=== PATIENT | female | born 1950 | race Caucasian/White ===

== ENCOUNTER → 2018-05-17 11:22 | Outpatient (CLI) | payer MEDICARE, OTHER, SELFPAY ==
[2018-05-20 17:17] LABS: Potassium 3.8 mmol/L (3.4-5.1); Sodium 138 mmol/L (137-145)
[2018-05-20 17:18] LABS: BUN Creatinine Ratio 18.3 (6-22); Blood Urea Nitrogen 11 mg/dL (7-17); Calcium 9.3 mg/dL (8.4-10.2); Carbon Dioxide 27 mmol/L (22-32); Chloride 100 mmol/L (98-107); Cholesterol 222 mg/dL (140-199); Estimated Glomerular Filt Rate > 60.0 mL/min (>60); Glucose 100 mg/dL (80-110); HDL Cholesterol 69 mg/dL (40-60); HEMOLYSIS < 15 (0-50); LDL Cholesterol Calculated 130 mg/dL (<100); Triglycerides 114 mg/dL (35-150)
[2018-05-20 17:19] LABS: Add Manual Diff / Slide Review NO; Basophils Percent Auto 0.8 % (0-2); Eosinophils Percent Auto 2.4 % (2-4); Hematocrit 40.1 % (36-46); Hemoglobin 13.3 g/dL (12.0-16.0); Lymphocytes Percent Auto 23.5 % (25-40); Mean Corpuscular HGB Conc 33.1 % (30-36); Mean Corpuscular Hemoglobin 27.2 PG (26-34); Mean Corpuscular Volume 82.3 fL (80-100); Monocytes Percent Auto 8.8 % (3-14); Neutrophils Percent Auto 64.5 % (50-75); Platelet Count 402 X10^3/uL (150-400); Red Blood Cell Count 4.87 X10^6/uL (4.0-5.2); Red Cell Distribution Width 14.5 % (11.6-14.8); White Blood Cell Count 6.5 X10^3/uL (4.5-11.0)
[2018-05-20 17:20] LABS: Basophils Absolute Auto 0 /uL (0-100); Eosinophils Absolute Auto 200 /uL (0-450); Lymphocytes Absolute Auto 1500 /uL (1100-4500); Monocytes Absolute Auto 600 /uL (0-900); Neutrophils Absolute Auto 4200 /uL (1500-7000)
== END ==
PROVIDERS: Family Provider Internal Medicine; PCP Internal Medicine; Visit Provider Internal Medicine
DX: I10 Essential (primary) hypertension (principal); D50.0 Iron deficiency anemia secondary to blood loss (chronic)
CPT/HCPCS: 36415; 80048; 80061; 85025

== ENCOUNTER → 2018-06-29 10:24 | Outpatient (CLI) | payer MEDICARE, OTHER, SELFPAY ==
--- NOTE | 2018-06-29 | DI.MG.S_ITS ---
BILATERAL DIGITAL SCREENING MAMMOGRAM 3D/2D WITH CAD: 06/29/2018 CLINICAL: Routine screening. Comparison is made to exams dated: 06/23/2017 mammogram, 05/20/2016 mammogram, and 12/21/2014 mammogram - [facility]. There are scattered fibroglandular elements in both breasts. Current study was also evaluated with a Computer Aided Detection (CAD) system. No significant masses, calcifications, or other findings are seen in either breast. There has been no significant interval change. IMPRESSION: NEGATIVE There is no mammographic evidence of malignancy. A 1 year screening mammogram is recommended. This exam was interpreted at Station ID: [id number]. NOTE: For mammograms, a report in lay terms will be sent to the patient. Approximately 15% of breast malignancies will not be visualized mammographically. In the management of a palpable breast mass, a negative mammogram must not discourage biopsy of a clinically suspicious lesion. Electronically Signed By: Tim Nova M.D. at/yulissa:06/29/2018 12:36:15 letter sent: Normal Exam ACR BI-RADS Category 1: Negative 3341F
== END ==
PROVIDERS: PCP Internal Medicine; Visit Provider Internal Medicine
DX: Z12.31 Encounter for screening mammogram for malignant neoplasm of breast (principal)
CPT/HCPCS: 77063; 77067

== ENCOUNTER → 2019-05-19 11:57 | Outpatient (CLI) | payer MEDICARE, OTHER, SELFPAY ==
[2019-05-19 12:58] LABS: Add Manual Diff / Slide Review NO; Basophils Absolute Auto 0 /uL (0-100); Basophils Percent Auto 0.8 % (0-2); Eosinophils Absolute Auto 100 /uL (0-450); Eosinophils Percent Auto 1.4 % (2-4); Hematocrit 34.4 % (36-46); Hemoglobin 10.8 g/dL (12.0-16.0); Lymphocytes Absolute Auto 1400 /uL (1100-4500); Lymphocytes Percent Auto 21.6 % (25-40); Mean Corpuscular HGB Conc 31.4 % (30-36); Mean Corpuscular Hemoglobin 22.1 PG (26-34); Mean Corpuscular Volume 70.4 fL (80-100); Monocytes Absolute Auto 600 /uL (0-900); Monocytes Percent Auto 8.8 % (3-14); Neutrophils Absolute Auto 4200 /uL (1500-7000); Neutrophils Percent Auto 67.4 % (50-75); Platelet Count 456 X10^3/uL (150-400); Red Blood Cell Count 4.89 X10^6/uL (4.0-5.2); White Blood Cell Count 6.3 X10^3/uL (4.5-11.0)
== END ==
PROVIDERS: PCP Internal Medicine; Referring Provider Internal Medicine; Visit Provider Internal Medicine
DX: D50.0 Iron deficiency anemia secondary to blood loss (chronic) (principal)
CPT/HCPCS: 36415; 85025

== ENCOUNTER → 2019-08-22 16:01 | Outpatient (CLI) | payer MEDICARE, OTHER, SELFPAY ==
[2019-08-23 08:51] LABS: COVID19 Sendout Not Detected (Not Detect)
== END ==
PROVIDERS: PCP Internal Medicine; Visit Provider Physician Assistant
DX: Z01.812 Encounter for preprocedural laboratory examination (principal)
CPT/HCPCS: 87635

== ENCOUNTER 2019-08-25 08:31 | Day surgery (SDC) | payer MEDICARE, OTHER, SELFPAY ==
--- NOTE | 2019-08-25 | PATH_ITS ---
[facility] Accession Number: [id number] . 01 Material submitted: . colon - COLON POLYP AT 35 CM . 02 Diagnosis: Colon, Polyp at 35 cm, Biopsy: Colonic mucosa with a benign lymphoid aggregate and no other diagnostic abnormality. Additional levels were examined. MRV 08/29/2019 1331 Local . 02 Electronically signed: . Yissel Noonan MD, Pathologist NPI- [id number] . 01 Gross description: . COLON POLYP AT 35 CM: Received in formalin are 2 fragment(s) of mares, soft tissue measuring 0.1 x 0.1 x 0.1 cm to 0.3 x 0.2 x 0.2 cm submitted entirely in 1 cassette(s) /ANAHY 08/25/20192041 Local . 02 Pathologist provided ICD-10: K63.5 . 02 CPT . 904518 Performed at: 01 [facility] [address], [place], [place] [id number] MD Trevor Márquez MD Phone: [phone] Performed at: [address] [facility] [address] [place], [place] [id number] MD Yissel Noonan MD Phone: [phone]
[2019-08-25 08:50] VITALS: BP 139/76; PULSE 65; RESP 16; TEMP 36.7; O2SAT 99; BMI 23.0
[2019-08-25] MEDS: LACTATED RINGERS 1,000 ML 200 ML IV (08:58)
[2019-08-25] MEDS: ONDANSETRON 4 MG/2 ML INJ IV (09:00)
--- NOTE | 2019-08-25 09:48 | PM.PREOP ---
Pre-operative Note COVID-19 COVID-19 status: Negative Result date/Date tested (Pos, Neg/Pending): 08/22/19 Interval Note History & Physical reviewed/Exam performed by Physician: Yes Changes to H&P: No ASA Class (for procedural sedation): II
[2019-08-25] MEDS: LIDOCAINE 4% SOLN 50 ML 20 ML TOP (09:56)
[2019-08-25] MEDS: MIDAZOLAM 5 MG/5 ML VIAL IV ×2 (10:13→10:27)
[2019-08-25] MEDS: fentaNYL 250 MCG/5 ML INJ IV (10:13)
[2019-08-25 10:37] VITALS: BP 114/64; PULSE 56; RESP 18; TEMP 36.2; O2SAT 96
[2019-08-25 10:42] VITALS: BP 105/69; PULSE 82; RESP 14; O2SAT 95
--- NOTE | 2019-08-25 10:44 | PM.OP.ENDO ---
Operative Date/Time/Diagnoses Date of procedure: 08/25/19 Time of procedure: 10:45 Pre-op diagnosis: Anemia Post-op diagnosis: same (Diverticulosis. Tiny polyp not the source of anemia. Large internal hemorrhoids with irritation. Could be the source of anemia.) Procedure & Clinicians Study performed: EGD. Colonoscopy with cold biopsy. Same procedure as scheduled: Yes Indications: Determine if there is a GI source of anemia Surgeon: Dwain Fairbanks Procedure Notes SCOAP/Timeout: Performed Procedure in detail: The patient had topical anesthetic applied to oropharynx. She was placed in left lateral decubitus position and underwent IV sedation directed by the surgeon consisting of fentanyl and Versed. A bite block was inserted and the scope was advanced through it into the esophagus. The esophagus was unremarkable. GE junction was noted at 40 cm from the incisors. The stomach insufflated well. There were no lesions seen in the body, antrum or at the incisura. The pyloric channel was patent. The duodenum was unremarkable to the 4th part. The scope was brought back into the stomach and retroflexed. The proximal stomach normal in appearance. There was no evidence of a hiatal hernia.. The scope was straightened and brought out through the esophagus again. No lesions were seen. The scope was removed and the patient tolerated the procedure well. The patient was repositioned in given additional sedation. Digital exam was remarkable for protruding internal hemorrhoids with ulceration on 1 of them. The scope was inserted and advanced through the rectum into the sigmoid, descending, transverse, and ascending colon. Patient was noted to have sigmoid diverticulosis. The cecum was reached identified by the ileocecal valve and the appendiceal opening. . The scope was gradually brought out. One Polyps was found at 20 cm from the anal verge. This was a very small lesion and not the source of significant blood loss. It was biopsied and removed.. The scope ultimately was retroflexed in the rectum. The appearance was remarkable for very large internal hemorrhoids. There was also scarring noted from her prior hemorrhoid procedure. The scope was removed and the patient tolerated the procedure well Scope withdrawal time: 8 minutes(10 total) Sedation minutes: 36 Findings: diverticulosis (Sigmoid), internal hemorrhoids and polyp Specimen(s): other (Polyp) Complications: none Post-procedure Recommendations: Colonscopy in 10 years (Consider if in good health) Follow up: as needed Disposition: PACU
[2019-08-25 10:47] VITALS: BP 122/69; PULSE 77; RESP 16; O2SAT 96
[2019-08-25 10:52] VITALS: BP 129/68; PULSE 76; RESP 18; TEMP 36; O2SAT 96
== END 2019-08-25 11:29 | disposition home or self-care (01) ==
PROVIDERS: PCP Internal Medicine; Referring Provider Specialist; Visit Provider Specialist
PROC: 0DJ08ZZ Inspection of Upper Intestinal Tract, Via Natural or Artificial Opening Endoscopic (ICD-10-PCS; CPT 43235; principal; 2019-08-25 09:45)
PROC: 0DJD8ZZ Inspection of Lower Intestinal Tract, Via Natural or Artificial Opening Endoscopic (ICD-10-PCS; CPT 45378; 2019-08-25 09:45)
DX: D64.9 Anemia, unspecified (principal); K57.30 Diverticulosis of large intestine without perforation or abscess without bleeding; K64.8 Other hemorrhoids; K63.5 Polyp of colon
CPT/HCPCS: 45380; 43235; 99152; 99153; J2250; J2405; J3010

== ENCOUNTER → 2019-10-10 10:09 | Outpatient (CLI) | payer MEDICARE, OTHER, SELFPAY ==
[2019-10-10 11:03] LABS: Add Manual Diff / Slide Review NO; Basophils Absolute Auto 0 /uL (0-100); Basophils Percent Auto 0.5 % (0-2); Eosinophils Absolute Auto 100 /uL (0-450); Eosinophils Percent Auto 1.4 % (2-4); Hematocrit 44.2 % (36-46); Hemoglobin 14.8 g/dL (12.0-16.0); Lymphocytes Absolute Auto 1200 /uL (1100-4500); Lymphocytes Percent Auto 23.7 % (25-40); Mean Corpuscular HGB Conc 33.5 % (30-36); Mean Corpuscular Hemoglobin 29.3 PG (26-34); Mean Corpuscular Volume 87.5 fL (80-100); Monocytes Absolute Auto 500 /uL (0-900); Neutrophils Absolute Auto 3400 /uL (1500-7000); Neutrophils Percent Auto 65.4 % (50-75); Platelet Count 299 X10^3/uL (150-400); Red Blood Cell Count 5.05 X10^6/uL (4.0-5.2); White Blood Cell Count 5.3 X10^3/uL (4.5-11.0)
[2019-10-10 11:48] LABS: HEMOLYSIS < 15 (0-50); Iron 201 ug/dL (37-170)
[2019-10-10 11:51] LABS: BUN Creatinine Ratio 22.4 (6-22); Blood Urea Nitrogen 13 mg/dL (7-17); Calcium 9.8 mg/dL (8.4-10.2); Carbon Dioxide 26 mmol/L (22-32); Chloride 105 mmol/L (98-107); Estimated Glomerular Filt Rate > 60.0 mL/min (>60); Glucose 110 mg/dL (80-110); HEMOLYSIS < 15 (0-50); Potassium 4.4 mmol/L (3.4-5.1); Sodium 138 mmol/L (137-145)
[2019-10-10 11:58] LABS: Percent Iron Saturation 51 % (15-50); Total Iron Binding Capacity 393 ug/dL (265-497); Transferrin 328 mg/dL (206-381)
[2019-10-13 07:09] LABS: Carnitine, Free 41 umol/L (20-55); Esterified/Free Ratio 0.7 Ratio (0.0-0.9)
== END ==
PROVIDERS: PCP Internal Medicine; Referring Provider Internal Medicine; Visit Provider Internal Medicine
DX: I10 Essential (primary) hypertension (principal); D50.0 Iron deficiency anemia secondary to blood loss (chronic); E71.40 Disorder of carnitine metabolism, unspecified; E55.9 Vitamin D deficiency, unspecified
CPT/HCPCS: 36415; 80048; 82306; 82379; 83540; 83550; 85025

== ENCOUNTER → 2020-02-16 09:28 | Outpatient (CLI) | payer MEDICARE, OTHER, SELFPAY ==
[2020-02-16 10:14] LABS: Add Manual Diff / Slide Review NO; Basophils Absolute Auto 0 /uL (0-100); Basophils Percent Auto 0.6 % (0-2); Eosinophils Absolute Auto 100 /uL (0-450); Eosinophils Percent Auto 2.3 % (2-4); Hematocrit 44.1 % (36-46); Hemoglobin 15.2 g/dL (12.0-16.0); Lymphocytes Absolute Auto 1600 /uL (1100-4500); Lymphocytes Percent Auto 25.5 % (25-40); Mean Corpuscular HGB Conc 34.4 % (30-36); Mean Corpuscular Hemoglobin 30.1 PG (26-34); Mean Corpuscular Volume 87.7 fL (80-100); Monocytes Absolute Auto 600 /uL (0-900); Monocytes Percent Auto 9.1 % (3-14); Neutrophils Absolute Auto 4000 /uL (1500-7000); Neutrophils Percent Auto 62.5 % (50-75); Platelet Count 336 X10^3/uL (150-400); Red Blood Cell Count 5.03 X10^6/uL (4.0-5.2); Red Cell Distribution Width 13.4 % (11.6-14.8); White Blood Cell Count 6.4 X10^3/uL (4.5-11.0)
[2020-02-16 10:37] LABS: HEMOLYSIS < 15 (0-50); Iron 80 ug/dL (37-170)
[2020-02-16 10:49] LABS: Percent Iron Saturation 19 % (15-50); Total Iron Binding Capacity 425 ug/dL (265-497); Transferrin 353 mg/dL (206-381)
== END ==
PROVIDERS: PCP Internal Medicine; Referring Provider Internal Medicine; Visit Provider Internal Medicine
DX: D50.0 Iron deficiency anemia secondary to blood loss (chronic) (principal)
CPT/HCPCS: 36415; 83540; 83550; 85025

== ENCOUNTER → 2020-04-03 19:13 | Outpatient (ROUT) | payer MEDICARE, OTHER, SELFPAY | PROVIDERS: PCP Internal Medicine; Visit Provider Internal Medicine | DX: R30.0 Dysuria (principal) | CPT/HCPCS: 87077; 87086 ==

== ENCOUNTER → 2020-08-16 08:59 | Outpatient (CLI) | payer MEDICARE, OTHER, SELFPAY ==
[2020-08-16 10:16] LABS: Add Manual Diff / Slide Review NO; Basophils Absolute Auto 0 /uL (0-100); Basophils Percent Auto 0.4 % (0-2); Eosinophils Absolute Auto 100 /uL (0-450); Eosinophils Percent Auto 1.4 % (2-4); Hematocrit 42.9 % (36-46); Hemoglobin 14.6 g/dL (12.0-16.0); Lymphocytes Absolute Auto 1300 /uL (1100-4500); Lymphocytes Percent Auto 22.6 % (25-40); Mean Corpuscular Hemoglobin 29.3 PG (26-34); Mean Corpuscular Volume 86.3 fL (80-100); Monocytes Absolute Auto 500 /uL (0-900); Monocytes Percent Auto 8.9 % (3-14); Neutrophils Absolute Auto 3700 /uL (1500-7000); Neutrophils Percent Auto 66.7 % (50-75); Platelet Count 297 X10^3/uL (150-400); Red Blood Cell Count 4.97 X10^6/uL (4.0-5.2); Red Cell Distribution Width 14.1 % (11.6-14.8); White Blood Cell Count 5.6 X10^3/uL (4.5-11.0)
[2020-08-16 11:01] LABS: BUN Creatinine Ratio 22.6 (6-22); Blood Urea Nitrogen 12 mg/dL (7-17); Calcium 9.7 mg/dL (8.4-10.2); Carbon Dioxide 27 mmol/L (22-32); Chloride 103 mmol/L (98-107); Estimated Glomerular Filt Rate > 60.0 mL/min (>60); Glucose 126 mg/dL (80-110); HEMOLYSIS < 15 (0-50); Potassium 4.2 mmol/L (3.4-5.1); Sodium 139 mmol/L (137-145)
== END ==
PROVIDERS: PCP Internal Medicine; Referring Provider Internal Medicine; Visit Provider Internal Medicine
DX: I10 Essential (primary) hypertension (principal); D50.0 Iron deficiency anemia secondary to blood loss (chronic)
CPT/HCPCS: 36415; 80048; 85025

== ENCOUNTER → 2020-11-29 15:42 | Outpatient (CLI) | payer MEDICARE, OTHER, SELFPAY ==
--- NOTE | 2020-11-29 15:44 | DI.MG.S_ITS ---
BILATERAL DIGITAL SCREENING MAMMOGRAM 3D/2D WITH CAD: 11/29/2020 CLINICAL: Routine screening. Comparison is made to exams dated: 06/29/2018 mammogram, 06/23/2017 mammogram, 05/20/2016 mammogram, and 10/09/2010 mammogram - [facility]. There are scattered fibroglandular elements in both breasts. Current study was also evaluated with a Computer Aided Detection (CAD) system. No significant masses, calcifications, or other findings are seen in either breast. There has been no significant interval change. IMPRESSION: NEGATIVE There is no mammographic evidence of malignancy. A 1 year screening mammogram is recommended. This exam was interpreted at Station ID: [id number]. NOTE: For mammograms, a report in lay terms will be sent to the patient. Approximately 15% of breast malignancies will not be visualized mammographically. In the management of a palpable breast mass, a negative mammogram must not discourage biopsy of a clinically suspicious lesion. Electronically Signed By: Carolann samayoa/yulissa:11/30/2020 08:23:02 letter sent: Normal Exam ACR BI-RADS Category 1: Negative 3341F
== END ==
PROVIDERS: PCP Internal Medicine; Referring Provider Internal Medicine; Visit Provider Internal Medicine
DX: Z12.31 Encounter for screening mammogram for malignant neoplasm of breast (principal)
CPT/HCPCS: 77063; 77067

== ENCOUNTER → 2021-03-19 12:10 | Outpatient (CLI) | payer MEDICARE, OTHER, SELFPAY ==
--- NOTE | 2021-03-19 | DI.RAD.S_ITS ---
PROCEDURE: XR HIP W PEL IF DONE RT 2V INDICATIONS: Pain in right hip. Previous study in 2017 TECHNIQUE: AP pelvis with lateral view(s) of the right hip(s). COMPARISON: None. FINDINGS: Bones: No fractures or dislocations. Pelvic ring appears intact. Moderate bilateral hip joint osteoarthritic changes are seen. No evidence of avascular necrosis of femoral head. No suspicious bony lesions. Patient's known oval sclerotic structure within medullary space of right proximal femoral shaft just inferior to the inferior trochanteric region is again seen now measures 1.6 x 2.1 cm in size compared to 1.9 cm on previous study in 2017. Soft tissues: The visualized bowel gas pattern is normal. No suspicious soft tissue calcifications. IMPRESSION: 1. Moderate bilateral hip joint osteoarthritis. No hip fracture or dislocation. No evidence of avascular necrosis. 2. Interval slight increase in size of patient's known oval sclerotic intraosseous lesion in proximal right femoral shaft most likely represent benign etiology. Continued radiographic follow-up is recommended. Dictated by: Cory Butt M.D. on 03/19/2021 at 15:06 Approved by: Cory Butt M.D. on 03/19/2021 at 15:09
== END ==
PROVIDERS: PCP Internal Medicine; Referring Provider Internal Medicine; Visit Provider Internal Medicine
DX: M16.0 Bilateral primary osteoarthritis of hip (principal); M25.551 Pain in right hip
CPT/HCPCS: 73502

== ENCOUNTER → 2022-01-28 13:17 | Outpatient (CLI) | payer MEDICARE, OTHER, SELFPAY ==
--- NOTE | 2022-01-28 | DI.MG.S_ITS ---
BILATERAL DIGITAL SCREENING MAMMOGRAM 3D/2D WITH CAD: 01/28/2022 CLINICAL: Routine screening. Comparison is made to exams dated: 11/29/2020 mammogram, 06/29/2018 mammogram, 06/23/2017 mammogram, and 05/20/2016 mammogram - [facility]. There are scattered areas of fibroglandular density in both breasts (category b / 25%-50% glandular tissue). Current study was also evaluated with a Computer Aided Detection (CAD) system. No significant masses, calcifications, or other findings are seen in either breast. There has been no significant interval change. IMPRESSION: NEGATIVE There is no mammographic evidence of malignancy. A 1 year screening mammogram is recommended. Based on the Tyrer Cuzick model (a risk assessment model) the patient's lifetime risk is 4.5% and her 10 year risk is 3.7%. According to the ACR, ACS, and NCCN guidelines, an annual breast MRI exam along with mammogram is recommended if the patient's lifetime risk is 20% or greater. This exam was interpreted at Station ID: [id number]. NOTE: For mammograms, a report in lay terms will be sent to the patient. Approximately 15% of breast malignancies will not be visualized mammographically. In the management of a palpable breast mass, a negative mammogram must not discourage biopsy of a clinically suspicious lesion. Electronically Signed By: Carolann samayoa/yulissa:01/28/2022 16:55:44 letter sent: Normal Exam ACR BI-RADS Category 1: Negative 3341F
== END ==
PROVIDERS: PCP Internal Medicine; Referring Provider Internal Medicine; Visit Provider Internal Medicine
DX: Z12.31 Encounter for screening mammogram for malignant neoplasm of breast (principal)
CPT/HCPCS: 77063; 77067

== ENCOUNTER → 2022-10-03 09:46 | Outpatient (CLI) | payer MEDICARE, OTHER, SELFPAY ==
[2022-10-03 10:35] LABS: Add Manual Diff / Slide Review NO; Basophils Absolute Auto 0 /uL (0-100); Basophils Percent Auto 0.4 % (0-2); Eosinophils Absolute Auto 100 /uL (0-450); Eosinophils Percent Auto 0.8 % (2-4); Hematocrit 44.7 % (36-46); Lymphocytes Absolute Auto 1300 /uL (1100-4500); Lymphocytes Percent Auto 19.9 % (25-40); Mean Corpuscular HGB Conc 33.6 % (30-36); Mean Corpuscular Hemoglobin 29.5 PG (26-34); Mean Corpuscular Volume 87.8 fL (80-100); Monocytes Absolute Auto 500 /uL (0-900); Monocytes Percent Auto 7.3 % (3-14); Neutrophils Absolute Auto 4700 /uL (1500-7000); Neutrophils Percent Auto 71.6 % (50-75); Platelet Count 341 X10^3/uL (150-400); Red Blood Cell Count 5.09 X10^6/uL (4.0-5.2); Red Cell Distribution Width 13.9 % (11.6-14.8); White Blood Cell Count 6.6 X10^3/uL (4.5-11.0)
[2022-10-03 10:52] LABS: HEMOLYSIS < 15 (0-50); Iron 147 ug/dL (37-170)
[2022-10-03 10:53] LABS: Alanine Aminotransferase 34 IU/L (<35); Albumin 4.6 g/dL (3.5-5.0); Albumin Globulin Ratio 1.6 (1.0-2.8); Alkaline Phosphatase 116 U/L (38-126); Aspartate Aminotransferase 42 IU/L (14-36); Bilirubin Total 0.6 mg/dL (0.2-1.3); Blood Urea Nitrogen 14 mg/dL (7-17); Calcium 9.5 mg/dL (8.4-10.2); Carbon Dioxide 28 mmol/L (22-32); Chloride 103 mmol/L (98-107); Estimated Glomerular Filt Rate > 60 mL/min (>60); Globulin 2.9 g/dL (1.7-4.1); Glucose 106 mg/dL (80-110); HEMOLYSIS < 15 (0-50); Potassium 4.1 mmol/L (3.4-5.1); Sodium 139 mmol/L (137-145); Total Protein 7.5 g/dL (6.3-8.2)
[2022-10-03 11:03] LABS: Percent Iron Saturation 32 % (15-50); Total Iron Binding Capacity 459 ug/dL (265-497); Transferrin 371 mg/dL (206-381)
[2022-10-03 11:13] LABS: Free T3, Triiodothyronine Free 4.44 pg/mL (2.77-5.27); Free T4, Direct Thyroxine 1.23 ng/dL (0.78-2.19)
[2022-10-04 07:03] LABS: x Labcorp Estim. Avg Glu (eAG) 131 mg/dL (.); x Labcorp Hemoglobin A1c 6.2 % (4.8-5.6)
[2022-10-04 18:46] LABS: Anti Thyroglobulin Antibody 37.8 IU/mL (0.0-0.9); Thyroid Peroxidase Antibodies <9 IU/mL (0-34)
== END ==
PROVIDERS: PCP Family Medicine; Referring Provider Family Medicine; Visit Provider Family Medicine
DX: E06.3 Autoimmune thyroiditis (principal); I10 Essential (primary) hypertension; R73.03 Prediabetes
CPT/HCPCS: 36415; 80053; 83036; 83540; 83550; 84439; 84443; 84481; 85025; 86376; 86800

== ENCOUNTER → 2023-02-03 13:08 | Outpatient (CLI) | payer MEDICARE, OTHER, SELFPAY ==
--- NOTE | 2023-02-03 13:09 | DI.MG.S_ITS ---
BILATERAL DIGITAL SCREENING MAMMOGRAM 3D/2D WITH CAD: 02/03/2023 CLINICAL: Routine screening. Comparison is made to exams dated: 01/28/2022 mammogram, 11/29/2020 mammogram, and 06/29/2018 mammogram - [facility]. There are scattered areas of fibroglandular density in both breasts (category b / 25%-50% glandular tissue). Current study was also evaluated with a Computer Aided Detection (CAD) system. No significant masses, calcifications, or other findings are seen in either breast. There has been no significant interval change. IMPRESSION: NEGATIVE There is no mammographic evidence of malignancy. A 1 year screening mammogram is recommended. Based on the Tyrer Cuzick model (a risk assessment model) the patient's lifetime risk is 4.2% and her 10 year risk is 3.8%. According to the ACR, ACS, and NCCN guidelines, an annual breast MRI exam along with mammogram is recommended if the patient's lifetime risk is 20% or greater. This exam was interpreted at Station ID: [id number]. NOTE: For mammograms, a report in lay terms will be sent to the patient. Approximately 15% of breast malignancies will not be visualized mammographically. In the management of a palpable breast mass, a negative mammogram must not discourage biopsy of a clinically suspicious lesion. Electronically Signed By: Esa becerra/yulissa:02/04/2023 09:10:26 letter sent: Normal Exam ACR BI-RADS Category 1: Negative 3341F
== END ==
PROVIDERS: PCP Family Medicine; Referring Provider Family Medicine; Visit Provider Family Medicine
DX: Z12.31 Encounter for screening mammogram for malignant neoplasm of breast (principal)
CPT/HCPCS: 77063; 77067

== ENCOUNTER → 2023-06-18 09:36 | Outpatient (CLI) | payer MEDICARE, OTHER, SELFPAY ==
[2023-06-18 10:30] LABS: Alanine Aminotransferase 117 IU/L (<35); Albumin 4.4 g/dL (3.5-5.0); Albumin Globulin Ratio 1.6 (1.0-2.8); Alkaline Phosphatase 87 U/L (38-126); Aspartate Aminotransferase 110 IU/L (14-36); Bilirubin Total 0.7 mg/dL (0.2-1.3); Blood Urea Nitrogen 13 mg/dL (7-17); Calcium 9.7 mg/dL (8.4-10.2); Carbon Dioxide 26 mmol/L (22-32); Chloride 104 mmol/L (98-107); Cholesterol 240 mg/dL (140-199); Estimated Glomerular Filt Rate > 60 mL/min (>60); Globulin 2.8 g/dL (1.7-4.1); Glucose 127 mg/dL (80-110); HDL Cholesterol 83 mg/dL (40-60); HEMOLYSIS < 15 (0-50); LDL Cholesterol Calculated 129 mg/dL (<100); Potassium 3.8 mmol/L (3.4-5.1); Sodium 136 mmol/L (137-145); Total Protein 7.2 g/dL (6.3-8.2); Triglycerides 138 mg/dL (35-150)
[2023-06-18 20:52] LABS: Hemoglobin A1C% w Est Avg Glu 6.3 % (4.0-6.0)
[2023-06-19 05:31] LABS: Free T4, Direct Thyroxine 1.52 ng/dL (0.78-2.19)
[2023-06-19 05:45] LABS: Thyroid Stimulating Hormone 1.06 uIU/mL (0.47-4.68)
[2023-06-19 07:38] LABS: Thyroid Peroxidase Antibodies 19 IU/mL (0-34)
== END ==
LOC: LAB 09:37
PROVIDERS: PCP Family Medicine; Referring Provider Family Medicine; Visit Provider Family Medicine
DX: E11.9 Type 2 diabetes mellitus without complications (principal); E06.3 Autoimmune thyroiditis; I10 Essential (primary) hypertension
CPT/HCPCS: 36415; 80053; 80061; 83036; 84439; 84443; 86376

== ENCOUNTER → 2023-06-30 12:47 | Outpatient (CLI) | payer MEDICARE, OTHER, SELFPAY ==
--- NOTE | 2023-06-30 12:48 | DI.RAD.S_ITS ---
PROCEDURE: XR DEXA AXIAL SKELETON INDICATIONS: postmenopausal COMPARISON: [facility], ROSMERY, DEXA AXIAL SKELETON, 06/23/2017, 13:16. [facility], ROSMERY, DEXA AXIAL SKELETON, 05/20/2016, 16:00. FINDINGS: Lumbar Spine: Bone mineral density 0.961 g/cm2, T score -0.8. Left Hip: Bone mineral density 0.879 g/cm2, T score -0.5. Left Femoral Neck: Bone mineral density 0.727 g/cm2, T score -1.1. Right Hip: Bone mineral density 0.880 g/cm2, T score -0.5. Right Femoral Neck: Bone mineral density 0.774 g/cm2, T score -0.7. Fracture Risk Calculation (when applicable): 10-year fracture risk of a major osteoporotic fracture 9.7 % and of a hip fracture 1.6%. (T score greater or equal to -1.0 to: NORMAL) (T score from -1.1 to -2.4: OSTEOPENIA) (T score less than or equal to -2.5: OSTEOPOROSIS) IMPRESSION: 1. Osteopenia Dictated by: Stevie Cohn M.D. on 06/30/2023 at 20:32 Approved by: Stevie Cohn M.D. on 06/30/2023 at 20:34
== END ==
LOC: RAD 12:48
PROVIDERS: PCP Family Medicine; Referring Provider Family Medicine; Visit Provider Family Medicine
DX: Z78.0 Asymptomatic menopausal state (principal); M85.852 Other specified disorders of bone density and structure, left thigh
CPT/HCPCS: 77080

== ENCOUNTER → 2023-07-23 08:32 | Outpatient (CLI) | payer MEDICARE, OTHER, SELFPAY ==
--- NOTE | 2023-07-23 08:33 | DI.US.S_ITS ---
PROCEDURE: US ABDOMEN LIMITED INDICATIONS: ELEVATED LFTS TECHNIQUE: Real-time scanning was performed of the abdominal and retroperitoneal organs, with image documentation. COMPARISON: None. FINDINGS: Liver: Hepatic steatosis. Measures 12.8 cm in length, within normal limits. The main portal vein demonstrates antegrade flow. Gallbladder: No gallstones. No wall thickening. No pericholecystic edema. Negative sonographic Gillis's sign. Biliary ducts: Intrahepatic bile ducts are non-dilated. Extrahepatic bile duct caliber measures 3 mm. Normal is 6-7 mm or less in diameter, or 10 mm or less post-cholecystectomy. Pancreas: Obscured by bowel gas. Miscellaneous: No free abdominal fluid. IMPRESSION: Hepatic steatosis. Dictated by: Analy Cuevas M.D. on 07/23/2023 at 11:36 Approved by: Analy Cuevas M.D. on 07/23/2023 at 11:39
== END ==
LOC: US 08:32
PROVIDERS: PCP Family Medicine; Referring Provider Family Medicine; Visit Provider Family Medicine
DX: R79.89 Other specified abnormal findings of blood chemistry (principal); K76.0 Fatty (change of) liver, not elsewhere classified
CPT/HCPCS: 76705

== ENCOUNTER → 2023-08-25 10:20 | Outpatient (CLI) | payer MEDICARE, OTHER, SELFPAY ==
[2023-08-25 11:27] LABS: Alanine Aminotransferase 94 IU/L (<35); Albumin 4.7 g/dL (3.5-5.0); Albumin Globulin Ratio 1.7 (1.0-2.8); Alkaline Phosphatase 82 U/L (38-126); Aspartate Aminotransferase 83 IU/L (14-36); BUN Creatinine Ratio 20.9 (6-22); Bilirubin Total 0.8 mg/dL (0.2-1.3); Blood Urea Nitrogen 14 mg/dL (7-17); Calcium 9.8 mg/dL (8.4-10.2); Carbon Dioxide 27 mmol/L (22-32); Chloride 106 mmol/L (98-107); Estimated Glomerular Filt Rate > 60 mL/min (>60); Globulin 2.8 g/dL (1.7-4.1); Glucose 128 mg/dL (80-110); HEMOLYSIS < 15 (0-50); Lipase 139 U/L (23-300); Potassium 4.3 mmol/L (3.4-5.1); Sodium 138 mmol/L (137-145); Total Protein 7.5 g/dL (6.3-8.2)
[2023-08-25 12:17] LABS: Hep C Virus Ab w/Reflex Quant NEGATIVE s/c (NEGATIVE)
== END ==
LOC: LAB 10:21
PROVIDERS: PCP Family Medicine; Referring Provider Family Medicine; Visit Provider Family Medicine
DX: R79.89 Other specified abnormal findings of blood chemistry (principal); I10 Essential (primary) hypertension; E06.3 Autoimmune thyroiditis
CPT/HCPCS: 36415; 80053; 83690; 86803

== ENCOUNTER → 2023-09-17 11:58 | Outpatient (CLI) | payer MEDICARE, OTHER, SELFPAY | PROVIDERS: PCP Family Medicine; Referring Provider Family Medicine; Visit Provider Family Medicine | DX: E06.3 Autoimmune thyroiditis (principal); R79.89 Other specified abnormal findings of blood chemistry | CPT/HCPCS: 36415; 84432; 86800 ==

== ENCOUNTER 2024-01-11 10:12 | Day surgery (SDC) | payer MEDICARE, OTHER, SELFPAY ==
[2024-01-11 10:42] VITALS: BP 136/74; PULSE 74; RESP 18; TEMP 36.7; O2SAT 100
--- NOTE | 2024-01-11 10:45 | P.HP_ITS ---
History of Present Illness History of Present Illness Date Patient Seen: 01/11/24 Time Patient Seen: 10:45 Chief complaint: Flex Sig Narrative: 73 yo female here for hx of rectal bleeding. I reviewed my recent office note. No significant changes. The patient had some bleeding this morning with the enemas. [facility] Medical History Elevated LFTs Medicare annual wellness visit, subsequent Well adult on routine health check Migraines (~1979) Headache Measles (~1953) Tinnitus Diverticular disease Davide's thyroiditis Diabetes (~2020) Thyroiditis Hypertension Hyperlipidemia Hx of ovarian cyst Hx of hemorrhoids History of anemia Surgical History Anesthesia Ovarian cyst (~1988) Hx of hemorrhoidectomy Family History Mother Hypertension Stroke Father Diabetes mellitus Hypertension Stroke Brother Diabetes mellitus Grandfather Cancer Grandmother Tuberculosis Grandfather History of heart disease Grandmother Stroke Social History marital status: household members: spouse occupational status: previously employed Smoking Status: Never smoker alcohol intake: current substance use type: does not use Meds Home Medications and Allergies Home Medications Medication Instructions Recorded Confirmed Type blood sugar diagnostic (OneTouch #100 ea 02/11/23 09/03/23 Rx Verio test strips) lancets 33 gauge (Ultra Thin #100 ea 02/11/23 09/03/23 Rx Lancets) amlodipine 5 mg tablet 5 mg PO DAILY #90 tabs 06/30/23 01/11/24 Rx fluticasone propionate 50 1 spray intranasal DAILY #16 grams 06/30/23 01/11/24 Rx mcg/actuation nasal spray,suspension hydrochlorothiazide 12.5 mg tablet 12.5 mg PO DAILY PRN Blood Pressure 01/11/24 01/11/24 History Allergies Allergy/AdvReac Type Severity Reaction Status Date / Time ampicillin Allergy Unknown Rash Verified 01/11/24 10:38 Review of Systems Review of Systems ROS: Yes All systems reviewed with the patient and are negative except as otherwise documented Exam Const General: cooperative HENMT Head: normal to inspection Eyes General: appearance normal, both eyes and all related structures Neck Neck: normal visual inspection Chest Chest: normal inspection of the chest Resp Effort & Inspection: normal respiratory effort Cardio Rate: regular rate GI Inspection: normal to inspection Skin General: no rashes or lesions noted Neuro General: patient alert and patient awake Extrem General: normal to inspection and no pedal edema Psych Appearance: grossly normal Assessment & Plan Assessment & Plan narrative: 73-year-old female longstanding intermittent rectal bleeding. Colonoscopy is technically up-to-date. Diagnostic flexible sigmoidoscopy is pursued today Time-Based Coding :: [TOTAL MINUTES] spent with patient and on the chart (including review of chart, obtaining history, exam, reviewing outside data, placing orders, documenting exam and treatment plan, and counseling patient) on [DATE].
--- NOTE | 2024-01-11 10:46 | PM.PREOP ---
Pre-operative Note Interval Note History & Physical reviewed/Exam performed by Physician: Yes Changes to H&P: No ASA Class (for procedural sedation): II
--- NOTE | 2024-01-11 11:56 | P.OP.COLON_ITS ---
Operative Date/Time/Diagnoses Date of procedure: 01/11/24 Time of procedure: 11:56 Pre-op diagnosis: Recurrent rectal bleeding Post-op diagnosis: same Procedure & Clinicians Study performed: Flexible sigmoidoscopy Same procedure as scheduled: Yes Indications: Rectal bleeding Surgeon: Helio Gerard Procedure Notes SCOAP/Timeout: Done Procedure in detail: After the risks and benefits were explained, written and verbal informed consent was obtained. The patient was brought into the procedure room and placed into the left lateral decubitus position. Conscious sedation medication was applied as per nursing documentation. Digital rectal examination was accomplished. The scope was introduced into the patient and advanced under direct visualization to the splenic flexure at about 45 cm from the anal verge. The scope was slowly withdrawn to carefully examine the mucosa for any defects or lesions. Comprehensive imaging was accomplished throughout the rectum including the dentate line. The colon was decompressed, the scope was then removed from the patient who tolerated the procedure well. Adult colonoscope Bowel prep adequate in the left colon and rectum. Scope withdrawal time: Not applicable Sedation minutes: 11 Specimen(s): none sent Complications: none Impression: Upon visual inspection of the anus, it was apparent the patient had prolapsed circumferential hemorrhoids. With digital exam, I was able to fully reduce these. There was no thrombosis detected no obvious mass lesion. No active bleeding. The anterior column of hemorrhoids were perhaps the most engorged and irregular in appearance but no active ulceration identified. The scope was in troduced into the rectum and multiple photographs were taken of the internal hemorrhoids and evidence of retained sutures at the dentate line with scarring evident circumferentially consistent with prior hemorrhoidectomy. No evidence of proctitis. No significant polyps or mass lesions identified from rectum through to the splenic flexure at 45 cm. There was diverticulosis noted in the left colon. Endoscopic diagnosis 1. Grade 3-4 nonbleeding nonthrombosed hemorrhoids 2. Evidence of prior hemorrhoidectomy 3. Mild sigmoid diverticulosis Post-procedure Plan for aftercare: 1. Continue a fiber based bowel regimen for soft regular stools. 2. Maintain adequate daily hydration. 3. Intermittent warm Epsom salt baths can be quite therapeutic to reduce hemorrhoidal engorgement. 4. After cleaning up post bowel movement, consider [id number] preparation H ?cooling gel? applied by way of a gloved index finger to gently manipulate the hemorrhoidal cushions backup inside the anal canal. 5. Follow up in surgical clinic to discuss options if the above does not provide satisfactory relief. Disposition: PACU
[2024-01-11 11:57] VITALS: BP 102/49; PULSE 68; RESP 11; TEMP 36.5; O2SAT 95
[2024-01-11 12:01] VITALS: BP 114/60; PULSE 69; RESP 24; O2SAT 95
[2024-01-11 12:07] VITALS: BP 113/66; PULSE 72; RESP 13; TEMP 36.2; O2SAT 96
[2024-01-11 12:11] VITALS: BP 119/65; PULSE 72; RESP 11; O2SAT 96
== END 2024-01-11 13:05 | disposition home or self-care (01) ==
PROVIDERS: PCP Family Medicine; Referring Provider Internal Medicine Gastroenterology; Visit Provider Internal Medicine Gastroenterology
PROC: 0DJD8ZZ Inspection of Lower Intestinal Tract, Via Natural or Artificial Opening Endoscopic (ICD-10-PCS; CPT 45378; principal; 2024-01-11 11:30)
DX: K62.5 Hemorrhage of anus and rectum (principal); K64.3 Fourth degree hemorrhoids; K57.30 Diverticulosis of large intestine without perforation or abscess without bleeding
CPT/HCPCS: 45330; 82962

== ENCOUNTER → 2024-02-09 10:46 | Outpatient (CLI) | payer MEDICARE, OTHER, SELFPAY ==
--- NOTE | 2024-02-09 10:49 | DI.MG.S_ITS ---
BILATERAL DIGITAL SCREENING MAMMOGRAM 3D/2D WITH CAD: 02/09/2024 CLINICAL: Routine screening. Comparison is made to exams dated: 02/03/2023 mammogram, 01/28/2022 mammogram, 11/29/2020 mammogram, and 06/29/2018 mammogram - [facility]. There are scattered areas of fibroglandular density (category b / 25%-50% glandular tissue). Current study was also evaluated with a Computer Aided Detection (CAD) system. No significant masses, calcifications, or other findings are seen in either breast. There has been no significant interval change. IMPRESSION: NEGATIVE There is no mammographic evidence of malignancy. A 1 year screening mammogram is recommended. Based on the Tyrer Cuzick model (a risk assessment model) the patient's lifetime risk is 3.9% and her 10 year risk is 3.9%. According to the ACR, ACS, and NCCN guidelines, an annual breast MRI exam along with mammogram is recommended if the patient's lifetime risk is 20% or greater. This exam was interpreted at Station ID: [id number]. NOTE: For mammograms, a report in lay terms will be sent to the patient. Approximately 15% of breast malignancies will not be visualized mammographically. In the management of a palpable breast mass, a negative mammogram must not discourage biopsy of a clinically suspicious lesion. Electronically Signed By: Stevie meraz/yulissa:02/09/2024 11:48:35 letter sent: Normal Exam ACR BI-RADS Category 1: Negative
== END ==
PROVIDERS: PCP Family Medicine; Referring Provider Family Medicine; Visit Provider Family Medicine
DX: Z12.31 Encounter for screening mammogram for malignant neoplasm of breast (principal)
CPT/HCPCS: 77063; 77067

== ENCOUNTER → 2024-03-24 09:17 | Outpatient (CLI) | payer MEDICARE, OTHER, SELFPAY ==
[2024-03-24 10:23] LABS: Hemoglobin A1C% w Est Avg Glu 6.5 % (4.0-6.0)
[2024-03-24 10:39] LABS: Alanine Aminotransferase 75 IU/L (<35); Albumin 4.6 g/dL (3.5-5.0); Albumin Globulin Ratio 1.7 (1.0-2.8); Alkaline Phosphatase 117 U/L (38-126); Aspartate Aminotransferase 71 IU/L (14-36); BUN Creatinine Ratio 23.5 (6-22); Bilirubin Total 0.6 mg/dL (0.2-1.3); Blood Urea Nitrogen 16 mg/dL (7-17); Calcium 9.7 mg/dL (8.4-10.2); Carbon Dioxide 25 mmol/L (22-32); Chloride 103 mmol/L (98-107); Estimated Glomerular Filt Rate > 60 mL/min (>60); Globulin 2.7 g/dL (1.7-4.1); Glucose 142 mg/dL (80-110); HEMOLYSIS < 15 (0-50); Potassium 3.9 mmol/L (3.4-5.1); Sodium 137 mmol/L (137-145); Total Protein 7.3 g/dL (6.3-8.2)
== END ==
PROVIDERS: PCP Family Medicine; Referring Provider Family Medicine; Visit Provider Family Medicine
DX: E11.9 Type 2 diabetes mellitus without complications (principal); E78.00 Pure hypercholesterolemia, unspecified
CPT/HCPCS: 36415; 80053; 83036

== ENCOUNTER → 2024-04-19 17:09 | Outpatient (CLI) | payer MEDICARE, OTHER, SELFPAY ==
[2024-04-19 18:01] LABS: HEMOLYSIS < 15 (0-50); Iron 39 ug/dL (37-170)
[2024-04-19 18:12] LABS: Percent Iron Saturation 9 % (15-50); Total Iron Binding Capacity 436 ug/dL (265-497); Transferrin 413 mg/dL (206-381)
[2024-04-19 18:38] LABS: Ferritin 10 ng/mL (11-264)
[2024-04-20 03:36] LABS: Alpha 1 Anti Trypsin 104 mg/dL (101-187); Ceruloplasmin 23.4 mg/dL (19.0-39.0)
[2024-04-20 05:37] LABS: Hepatitis A Antibody Total Negative (Negative); Hepatitis B Core Antibody Negative (Negative); Hepatitis B Surf AB Quant <3.5 mIU/mL (Immunity>10)
[2024-04-20 16:07] LABS: IgG Subclass 1 380 mg/dL (248-810); IgG Subclass 2 200 mg/dL (130-555); IgG Subclass 3 57 mg/dL (15-102); IgG Subclass 4 19 mg/dL (2-96); IgG Total 750 mg/dL (586-1602)
[2024-04-21 11:39] LABS: Smooth Muscle Antibody 4 Units (0-19)
[2024-04-21 15:06] LABS: Hepatitis B Surface Antigen NEGATIVE s/c (NEGATIVE)
[2024-04-21 15:23] LABS: Hep C Virus Ab w/Reflex Quant NEGATIVE s/c (NEGATIVE)
== END ==
PROVIDERS: PCP Family Medicine; Referring Provider Internal Medicine; Visit Provider Internal Medicine
DX: R79.89 Other specified abnormal findings of blood chemistry (principal); Z11.59 Encounter for screening for other viral diseases
CPT/HCPCS: 36415; 82103; 82390; 82728; 82784; 82787; 83540; 83550; 86015; 86704; 86706; 86708; 86803; 87340

== ENCOUNTER → 2024-08-09 09:35 | Outpatient (CLI) | payer MEDICARE, OTHER, SELFPAY ==
[2024-08-09 11:10] LABS: Erythrocyte Sedimentation Rate 3 MM/HR (0-20)
[2024-08-09 11:31] LABS: Alanine Aminotransferase 44 IU/L (<35); Albumin 4.6 g/dL (3.5-5.0); Albumin Globulin Ratio 1.8 (1.0-2.8); Alkaline Phosphatase 106 U/L (38-126); Aspartate Aminotransferase 49 IU/L (14-36); Bilirubin Total 0.7 mg/dL (0.2-1.3); Blood Urea Nitrogen 15 mg/dL (7-17); C-Reactive Protein Quant < 0.5 mg/dL (<1.0); Calcium 9.5 mg/dL (8.4-10.2); Carbon Dioxide 22 mmol/L (22-32); Chloride 105 mmol/L (98-107); Estimated Glomerular Filt Rate > 60 mL/min (>60); Globulin 2.5 g/dL (1.7-4.1); Glucose 118 mg/dL (70-99); HEMOLYSIS < 15 (0-50); Potassium 4.3 mmol/L (3.4-5.1); Sodium 138 mmol/L (137-145); Total Protein 7.1 g/dL (6.3-8.2)
[2024-08-09 11:32] LABS: Hemoglobin A1C% w Est Avg Glu 6.5 % (4.0-6.0)
[2024-08-09 11:56] LABS: Free T4, Direct Thyroxine 1.41 ng/dL (0.78-2.19)
[2024-08-09 12:09] LABS: Thyroid Stimulating Hormone 1.14 uIU/mL (0.47-4.68)
== END ==
PROVIDERS: PCP Family Medicine; Referring Provider Family Medicine; Visit Provider Family Medicine
DX: R79.89 Other specified abnormal findings of blood chemistry (principal); E78.5 Hyperlipidemia, unspecified; E11.9 Type 2 diabetes mellitus without complications; I10 Essential (primary) hypertension; E06.3 Autoimmune thyroiditis
CPT/HCPCS: 36415; 80053; 83036; 84439; 84443; 85651; 86140

== ENCOUNTER → 2024-08-30 09:52 | Outpatient (CLI) | payer MEDICARE, OTHER, SELFPAY ==
[2024-08-30 11:16] LABS: Free T4, Direct Thyroxine 1.42 ng/dL (0.78-2.19)
[2024-08-30 11:29] LABS: Thyroid Stimulating Hormone 1.19 uIU/mL (0.47-4.68)
[2024-08-31 09:09] LABS: Thyroid Peroxidase Antibodies 10 IU/mL (0-34)
[2024-08-31 15:36] LABS: Anti Thyroglobulin Antibody 8.7 IU/mL (0.0-0.9)
== END ==
PROVIDERS: PCP Family Medicine; Referring Provider Family Medicine; Visit Provider Family Medicine
DX: E06.3 Autoimmune thyroiditis (principal)
CPT/HCPCS: 36415; 84439; 84443; 86376; 86800

== ENCOUNTER → 2025-02-09 09:39 | Outpatient (CLI) | payer MEDICARE, OTHER, SELFPAY ==
[2025-02-09 10:17] LABS: Hemoglobin A1C% w Est Avg Glu 6.4 % (4.0-6.0)
[2025-02-09 10:29] LABS: Alanine Aminotransferase 48 IU/L (<35); Albumin 4.7 g/dL (3.5-5.0); Albumin Globulin Ratio 1.7 (1.0-2.8); Alkaline Phosphatase 110 U/L (38-126); Blood Urea Nitrogen 11 mg/dL (7-17); Calcium 9.7 mg/dL (8.4-10.2); Carbon Dioxide 26 mmol/L (22-32); Chloride 105 mmol/L (98-107); Estimated Glomerular Filt Rate > 60 mL/min (>60); Globulin 2.7 g/dL (1.7-4.1); Glucose 148 mg/dL (70-99); HEMOLYSIS 23 (0-50); Potassium 4.3 mmol/L (3.4-5.1); Sodium 140 mmol/L (137-145); Total Protein 7.4 g/dL (6.3-8.2)
[2025-02-09 11:00] LABS: TSH w/ Reflex to FT4 1.16 uIU/mL (0.47-4.68)
== END ==
PROVIDERS: PCP Family Medicine; Referring Provider Family Medicine; Visit Provider Family Medicine
DX: R79.89 Other specified abnormal findings of blood chemistry (principal); E78.00 Pure hypercholesterolemia, unspecified; E11.9 Type 2 diabetes mellitus without complications; I10 Essential (primary) hypertension; E06.3 Autoimmune thyroiditis; E87.5 Hyperkalemia
CPT/HCPCS: 36415; 80053; 82172; 83036; 84443

== ENCOUNTER → 2025-02-09 15:12 | Outpatient (CLI) | payer MEDICARE, OTHER, SELFPAY ==
--- NOTE | 2025-02-09 15:13 | DI.MG.S_ITS ---
MM screening mammo BI: 02/09/2025. BI-RADS: 1 CLINICAL: 74-year old female for bilateral screening mammogram. Tyrer-Cuzick lifetime risk of 2.3%. No personal or first-degree family history of breast cancer. PRIOR EXAMS 02/09/2024, 02/03/2023, 01/28/2022, 11/29/2020. MAMMOGRAPHY TECHNIQUE: 2D and 3D (tomosynthesis) digital mammographic views obtained, with additional images as needed for full coverage. Current study was also evaluated with a Computer Aided Detection (CAD) system. DENSITY B. There are scattered areas of fibroglandular density. MAMMOGRAPHY FINDINGS Bilateral: No suspicious mass, asymmetry, microcalcification, or other abnormality seen. No significant change from comparison. IMPRESSION: * No evidence of malignancy. RECOMMENDATIONS Bilateral * Annual screening mammography. OVERALL ASSESSMENT CATEGORY BI-RADS-1: Negative. The [employer] recommends annual screening mammography beginning at age 40 for women with average risk of breast cancer. ELECTRONICALLY SIGNED: Kojo Walter M.D. on 02/10/2025 at 09:47:04 AM PT Interpreting Station ID: [id number]
== END ==
LOC: MAMMO 15:13
PROVIDERS: PCP Family Medicine; Referring Provider Family Medicine; Visit Provider Family Medicine
DX: Z12.31 Encounter for screening mammogram for malignant neoplasm of breast (principal)
CPT/HCPCS: 77063; 77067